=== PATIENT | female | born 1940 | race Caucasian/White ===

== ENCOUNTER → 2016-06-19 | Outpatient (CLI) | payer MEDICARE, BC ==
[~2016-06-19] MED LIST: CHOL50009 PO; MULT1CAP20 PO; OLME20TA20 PO; UBID100C24 PO
--- NOTE | 2016-06-19 15:59 | RADRPT ---
PROCEDURE: Left knee radiographs. CLINICAL INDICATION: Left knee pain. Postop. TECHNIQUE: Three views. Weight bearing. Frontal, lateral, and patellar view. COMPARISON: 05/31/2015. FINDINGS: There is no fracture or dislocation. The soft tissues are normal. 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 There is no lytic or blastic lesion. There is no joint effusion. IMPRESSION: 1. Satisfactory postoperative appearance of the left knee. 2. No change from 05/31/2015. RPTAT: QQ .Ayan Urbina MD, MD Date Time Electronically viewed and signed by .Ayan Urbina MD, MD on 06/19/2016 15:59 .R/
--- NOTE | 2016-06-19 15:59 | RADRPT ---
PROCEDURE: XR Left hip and pelvis. CLINICAL INDICATION: Left hip pain and pelvic pain. TECHNIQUE: 3 views. Frontal pelvis. Frontal and lateral left hip. COMPARISON: Pelvis radiograph dated 06/12/2014. FINDINGS: There is no fracture or dislocation. The soft tissues are normal. There are mild degenerative changes of the lower lumbar spine with osteophytes noted. There is no lytic or blastic lesion. Previously noted Grimes catheter is no longer present. There are faintly opaque oval foreign bodies overlying the left lower quadrant and midline inferior pelvis which may be pills. IMPRESSION: 1. 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 2. Grimes catheter removed. 3. Foreign body consistent with probable pills overlying the left lower quadrant and midline inferi or pelvis. 4. Otherwise unremarkable study. RPTAT: QQ .Ayan Urbina MD, Date Time Electronically viewed and signed by .Ayan Urbina MD, MD on 06/19/2016 15:58 .R/
== END | disposition home or self-care (01) ==
LOC: HKI 13:53
PROVIDERS: ATTEND Orthopaedic Surgery
DX: M25.552 Pain in left hip (principal); M70.62 Trochanteric bursitis, left hip; Z96.652 Presence of left artificial knee joint
CPT/HCPCS: 20610; 73502; 73562; G0463; J1030